=== PATIENT | female | born 1975 | race Asian ===

== ENCOUNTER 2018-08-19 09:13 | Emergency (ER) | payer MEDICARE, OTHER ==
[2018-08-19 09:31] VITALS: BP 139/84
[2018-08-19] MEDS ORDERED: ZOFRAN ODT PO ONE (09:58)
--- NOTE | 2018-08-19 10:04 | Emergency Department Report ---
ED General Adult HPI - General Chief complaint: Upper Respiratory Infection Stated complaint: RESP INFECTION/WEAK Time Seen by Provider: 08/19/18 09:50 Source: patient Mode of arrival: Ambulatory Limitations: No Limitations - History of Present Illness Initial comments: Patient presents to emergency department with chief complaint of nausea vomiting 3 days as well as chills. Patient denies fever, chest pain, abdominal pain. Patient denies any sick contacts. Patient also complains of a cough for the last 3 days as well. -: Gradual Severity scale (0 -10): 0 Consistency: constant Improves with: none Worsens with: none Associated Symptoms: denies other symptoms Treatments Prior to Arrival: none - Related Data Previous Rx's Medication Instructions Recorded Last Taken Type Oxymetazoline 0.05% [Afrin] 1 spray NS Q12H #1 bottle 08/07/18 Unknown Rx Ondansetron [Zofran Odt] 4 mg PO Q8HR #12 tab.rapdis 08/19/18 Unknown Rx Allergies Allergy/AdvReac Type Severity Reaction Status Date / Time clozapine Allergy Swelling Verified 08/07/18 11:21 ziprasidone [From Geodon] Allergy Unknown Verified 08/07/18 11:21 zolpidem [From Ambien] Allergy Unknown Verified 08/07/18 11:21 ED Review of Systems ROS: Stated complaint: RESP INFECTION/WEAK Other details as noted in HPI Comment: All other systems reviewed and negative Constitutional: denies: chills, fever Eyes: denies: eye pain, eye discharge, vision change ENT: denies: ear pain, throat pain Respiratory: denies: cough, shortness of breath, wheezing Cardiovascular: denies: chest pain, palpitations Endocrine: no symptoms reported Gastrointestinal: denies: abdominal pain, nausea, diarrhea Genitourinary: denies: urgency, dysuria, discharge Musculoskeletal: denies: back pain, joint swelling, arthralgia Skin: denies: rash, lesions Neurological: denies: headache, weakness, paresthesias Psychiatric: denies: anxiety, depression Hematological/Lymphatic: denies: easy bleeding, easy bruising ED Past Medical Hx - Past Medical History Previous Medical History?: Yes Hx Psychiatric Treatment: Yes (bipolor,panic disorder) Additional medical history: fibromyalgia - Surgical History Past Surgical History?: Yes Additional Surgical History: wisdom teeth removed - Social History Smoking Status: Current Every Day Smoker Substance Use Type: Prescribed - Medications Home Medications: Home Medications Medication Instructions Recorded Confirmed Last Taken Type Oxymetazoline 0.05% [Afrin] 1 spray NS Q12H #1 bottle 08/07/18 Unknown Rx Ondansetron [Zofran Odt] 4 mg PO Q8HR #12 tab.rapdis 08/19/18 Unknown Rx ED Physical Exam - General Limitations: No Limitations General appearance: alert, in no apparent distress - Head Head exam: Present: atraumatic, normocephalic - Eye Eye exam: Present: normal appearance - ENT ENT exam: Present: mucous membranes moist - Neck Neck exam: Present: normal inspection - Respiratory Respiratory exam: Present: normal lung sounds bilaterally. Absent: respiratory distress - Cardiovascular Cardiovascular Exam: Present: regular rate, normal rhythm. Absent: systolic murmur, diastolic murmur, rubs, gallop - GI/Abdominal GI/Abdominal exam: Present: soft, normal bowel sounds. Absent: distended, tenderness - Extremities Exam Extremities exam: Present: normal inspection - Back Exam Back exam: Present: normal inspection - Neurological Exam Neurological exam: Present: alert, oriented X3, CN II-XII intact. Absent: motor sensory deficit - Psychiatric Psychiatric exam: Present: normal affect, normal mood - Skin Skin exam: Present: warm, dry, intact, normal color. Absent: rash ED Course Vital Signs 08/19/18 09:26 Temperature 97.7 F Pulse Rate 70 Respiratory 18 Rate Blood Pressure 139/84 O2 Sat by Pulse 97 Oximetry ED Medical Decision Making - Lab Data Result diagrams: 08/19/18 10:09 08/19/18 10:09 Lab Results 08/19/18 08/19/18 Range/Units 10:09 10:09 WBC 11.5 H (4.5-11.0) K/mm3 RBC 4.57 (3.65-5.03) M/mm3 Hgb 12.7 (10.1-14.3) gm/dl Hct 39.0 (30.3-42.9) % MCV 86 (79-97) fl MCH 28 (28-32) pg MCHC 32 (30-34) % RDW 15.2 (13.2-15.2) % Plt Count 447 H (140-440) K/mm3 Lymph % (Auto) 16.5 (13.4-35.0) % Cook % (Auto) 3.7 (0.0-7.3) % Eos % (Auto) 0.6 (0.0-4.3) % Baso % (Auto) 0.3 (0.0-1.8) % Lymph # 1.9 (1.2-5.4) K/mm3 Cook # 0.4 (0.0-0.8) K/mm3 Eos # 0.1 (0.0-0.4) K/mm3 Baso # 0.0 (0.0-0.1) K/mm3 Seg Neutrophils % 78.9 H (40.0-70.0) % Seg Neutrophils # 9.0 H (1.8-7.7) K/mm3 Sodium 139 (137-145) mmol/L Potassium 4.4 (3.6-5.0) mmol/L Chloride 102.9 (98-107) mmol/L Carbon Dioxide 23 (22-30) mmol/L Anion Gap 18 mmol/L BUN 5 L (7-17) mg/dL Creatinine 0.6 L (0.7-1.2) mg/dL Estimated GFR > 60 ml/min BUN/Creatinine Ratio 8 % Glucose 100 (65-100) mg/dL Calcium 9.5 (8.4-10.2) mg/dL - Radiology Data Radiology results: report reviewed - Medical Decision Making Discussed results with the patient Critical care attestation.: If time is entered above; I have spent that time in minutes in the direct care o f this critically ill patient, excluding procedure time. ED Disposition Clinical Impression: Nausea and vomiting Disposition: TO HOME OR SELFCARE Is pt being admited?: No Does the pt Need Aspirin: No Condition: Stable Instructions: Acute Nausea and Vomiting (ED) Additional Instructions: return if worse Prescriptions: Ondansetron [Zofran Odt] 4 mg PO Q8HR #12 tab.rapdis Referrals: PRIMARY CARE, [Primary Care Provider] - 3-5 Days [facility] [Provider Group] - 3-5 Days Time of Disposition: 11:01
--- NOTE | 2018-08-19 10:17 | XRay Report ---
ROUTINE CHEST, TWO VIEWS: HISTORY: Cough. The trachea, heart, mediastinal contour, lung serrano and bony thorax are unremarkable. Mild scoliosis is noted IMPRESSION: Unremarkable chest x-ray.
[2018-08-19 10:28] LABS: Basophils % (Auto) 0.3 % (0.0-1.8); Eosinophils # (Auto) 0.1 K/mm3 (0.0-0.4); Eosinophils % (Auto) 0.6 % (0.0-4.3); Hemoglobin 12.7 gm/dl (10.1-14.3); Lymphocytes # (Auto) 1.9 K/mm3 (1.2-5.4); Lymphocytes % (Auto) 16.5 % (13.4-35.0); Mean Corpuscular HGB Conc 32 % (30-34); Mean Corpuscular Volume 86 fl (79-97); Monocytes # (Auto) 0.4 K/mm3 (0.0-0.8); Monocytes % (Auto) 3.7 % (0.0-7.3); Platelet Count 447 K/mm3 (140-440); Red Blood Count 4.57 M/mm3 (3.65-5.03); Red Cell Distribution Width 15.2 % (13.2-15.2)
[2018-08-19 10:42] LABS: BUN/Creatinine Ratio 8; Blood Urea Nitrogen 5 mg/dL (7-17); Calcium 9.5 mg/dL (8.4-10.2); Hemolysis Index 85
== END 2018-08-19 11:18 | disposition home or self-care (01) ==
LOC: ED 09:13
DX: R11.2 Nausea with vomiting, unspecified (principal); R05 Cough; F31.9 Bipolar disorder, unspecified; F41.0 Panic disorder [episodic paroxysmal anxiety]; Z88.4 Allergy status to anesthetic agent
CPT/HCPCS: 36415; 71046; 80048; 85025; Q0162

== ENCOUNTER 2019-06-03 06:48 | Emergency (ER) | payer MEDICARE ==
[2019-06-03 07:42] LABS: Basophils # (Auto) 0.1 K/mm3 (0.0-0.1); Basophils % (Auto) 0.7 % (0.0-1.8); Eosinophils % (Auto) 0.3 % (0.0-4.3); Hematocrit 40.8 % (30.3-42.9); Hemoglobin 13.7 gm/dl (10.1-14.3); Lymphocytes # (Auto) 2.1 K/mm3 (1.2-5.4); Lymphocytes % (Auto) 17.8 % (13.4-35.0); Mean Corpuscular HGB Conc 34 % (30-34); Mean Corpuscular Volume 84 fl (79-97); Monocytes # (Auto) 0.5 K/mm3 (0.0-0.8); Monocytes % (Auto) 4.3 % (0.0-7.3); Platelet Count 408 K/mm3 (140-440); Red Blood Count 4.88 M/mm3 (3.65-5.03); Red Cell Distribution Width 13.7 % (13.2-15.2)
[2019-06-03 08:11] LABS: Alanine Aminotransferase 7 units/L (7-56); Albumin 4.5 g/dL (3.9-5); BUN/Creatinine Ratio 9; Blood Urea Nitrogen 6 mg/dL (7-17); Calcium 9.7 mg/dL (8.4-10.2); Hemolysis Index 16
--- NOTE | 2019-06-03 11:30 | Event Note ---
Event Note: This patient is medically stable and appropriate for treatment in a psychiatric setting, ie. their behavioral disturbance is unlikely to be due to a medical condition or physical trauma, and their medical/surgical treatment for any concomitant conditions is within the capabilities of the receiving facility.
--- NOTE | 2019-06-03 11:35 | Emergency Department Report ---
ED Psych HPI - General Chief Complaint: Psych Stated Complaint: MH EVALUATION Time Seen by Provider: 06/03/19 11:24 Source: patient Mode of arrival: Ambulatory - History of Present Illness Initial Comments: 44-year-old female past medical history of anxiety and suicidal ideation. She states that she is having some increased stressors in her life and feels like her medication is not helping and has been having thoughts of wanting home herself feels that she wants to take a lot of pills to overdose to accomplish what she is thinking. She reports no fever, chills, sweats no chest pain or palpitations no nausea or vomiting. MD Complaint: suicidal ideation, feels depressed Associated Psychiatric Symptoms: none History of same: Yes Quality: constant Improves With: none Worsens With: none - Related Data Previous Rx's Medication Instructions Recorded Last Taken Type Oxymetazoline 0.05% [Vicks Sinex] 1 spray NS Q12H #1 bottle 08/07/18 Unknown Rx Ondansetron [Zofran Odt] 4 mg PO Q8HR #12 tab.rapdis 08/19/18 Unknown Rx Allergies Allergy/AdvReac Type Severity Reaction Status Date / Time clozapine Allergy Swelling Verified 08/07/18 11:21 ziprasidone [From Geodon] Allergy Unknown Verified 08/07/18 11:21 zolpidem [From Ambien] Allergy Unknown Verified 08/07/18 11:21 ED Review of Systems ROS: Stated complaint: MH EVALUATION Other details as noted in HPI Comment: All other systems reviewed and negative ED Past Medical Hx - Past Medical History Previous Medical History?: Yes Hx Hypertension: Yes Hx Psychiatric Treatment: Yes (bipolor,panic disorder) Additional medical history: fibromyalgia - Surgical History Past Surgical History?: Yes Additional Surgical History: wisdom teeth removed - Social History Smoking Status: Former Smoker Substance Use Type: None - Medications Home Medications: Home Medications Medication Instructions Recorded Confirmed Last Taken Type Oxymetazoline 0.05% [Vicks Sinex] 1 spray NS Q12H #1 bottle 08/07/18 Unknown Rx Ondansetron [Zofran Odt] 4 mg PO Q8HR #12 tab.rapdis 08/19/18 Unknown Rx ED Physical Exam - General Limitations: No Limitations General appearance: alert, in no apparent distress - Head Head exam: Present: atraumatic, normocephalic, other (hair loss and shedding noted) - Eye Eye exam: Present: normal appearance, PERRL - ENT ENT exam: Present: mucous membranes moist - Neck Neck exam: Present: normal inspection - Respiratory Respiratory exam: Present: normal lung sounds bilaterally. Absent: respiratory distress - Cardiovascular Cardiovascular Exam: Present: regular rate, normal rhythm. Absent: systolic murmur, diastolic murmur, rubs, gallop - GI/Abdominal GI/Abdominal exam: Present: soft, normal bowel sounds - Extremities Exam Extremities exam: Present: normal inspection, full ROM - Back Exam Back exam: Present: normal inspection - Neurological Exam Neurological exam: Present: alert, oriented X3, CN II-XII intact, normal gait - Psychiatric Psychiatric exam: Present: depressed, suicidal ideation - Skin Skin exam: Present: warm, dry, intact, normal color. Absent: rash ED Course Vital Signs 06/03/19 06:58 Temperature 98.3 F Pulse Rate 57 L Respiratory 16 Rate Blood Pressure 151/83 O2 Sat by Pulse 98 Oximetry ED Medical Decision Making - Lab Data Result diagrams: 06/03/19 07:26 06/03/19 07:41 - Medical Decision Making 44-year-old female with past medical history of anxiety and depression out of her Klonopin and having increased psychological stressors revolving in her life at this present time is found to report suicidal ideation with the plan After evaluation in the emergency department for a psychiatric disease, no findings exacerbating or causing the psychiatric complaint. This patient demonstrates no contributing medical instability or "condition facilitating this psychiatric presentation. Patient does have urinary tract infection which was covered with Rocephin no evidence of sepsis. Patient is medically clear for admission to mental health facility See the accompanying mental health manager of compensation's note for more detail: MENTAL HEALTH NOTE Pt is a 44-year-old W/F who presents to the emergency room fir suicidal ideations with a plan to overdose. Pt reported she has a diagnosis of Bipolar and recently has felt as though she is having a nervous breakdown. My hair is falling out and It feels like I cant breathe. Pt goes on to say she feels as though she is panicking all of the time. Pt reports she has been having suicidal ideations with a plan for the past few days. Pt reports her plan is to overdose on pills. Pt states her stressors as financial and trying to get my life back together. Pt reports not sleeping well due to her currently living situation (renting a room with a lady). Pt is woken up randomly by this woman nightly with weird requests or reasons. Pt denies psychosis. Pt stated she is mostly compliant with her mental health medications: [place], Lamectal, Klonopin and Latuda. Pt denies any substance abuse. Pt has been placed on a 1013. Case staffed with Malorie Smith and it was agreed that pt meets criteria for inpatient psychiatric care and will be referred to a facility Critical care attestation.: If time is entered above; I have spent that time in minutes in the direct care of this critically ill patient, excluding procedure time. ED Disposition Clinical Impression: Suicidal ideations Disposition: [id number]/TX-[id number] ANOTHER TYPE HLTHCARE Does the pt Need Aspirin: No Condition: Stable
[2019-06-03 12:38] LABS: Bacteria,Urine 1+ /HPF (Negative); Bilirubin,Urine NEG (Negative); Blood,Urine SM (Negative); Color,Urine Amber (Yellow); Mucus,Urine 2+ /HPF
[2019-06-03 12:49] LABS: Amphetamine Screen,Urine PRESUMPTIVE NEGATIVE; Benzodiazepines Screen,Urine PRESUMPTIVE NEGATIVE; Cannabinoid Screen,Urine PRESUMPTIVE NEGATIVE; Cocaine Screen,Urine PRESUMPTIVE NEGATIVE; Methadone Screen,Urine PRESUMPTIVE NEGATIVE; Opiate Screen,Urine PRESUMPTIVE NEGATIVE
[2019-06-03] MEDS ORDERED: ROCEPHIN IM STA (14:13)
[2019-06-03] MEDS ORDERED: XYLOCAINE 1% MPF 5 mL INFILTRATI ONE (14:13)
[2019-06-03] MEDS: XANAX PO PRN (23:02)
[2019-06-04 02:01] VITALS: BP 126/71
[2019-06-04] MEDS: XANAX PO PRN (05:38)
== END 2019-06-04 08:11 | disposition other institution (70) ==
LOC: ED 06:48
DX: F31.9 Bipolar disorder, unspecified (principal); F41.0 Panic disorder [episodic paroxysmal anxiety]; I10 Essential (primary) hypertension; Z87.891 Personal history of nicotine dependence; Z88.8 Allergy status to other drugs, medicaments and biological substances; Z88.1 Allergy status to other antibiotic agents
CPT/HCPCS: 36415; 80053; 80307; 81001; 85025; 87086; 96372; 99285; J0696; 80320; G0480